=== PATIENT | female | born 1955 | race Caucasian/White ===

== ENCOUNTER → 2017-03-27 | Outpatient (CLI) | payer BC ==
[~2017-03-27] MED LIST: EVISTA60 MG PO; HYDROCHLOROTHIA25 M1 PO; KEFLEX 500MG.500 MG PO; MASON NATURAL2000 IU PO; MELOXICAM7.5 MG PO; MULTIVITAMINS1 EACH PO; POTASSIUM CHLO20 ME2 PO
--- NOTE | 2017-03-31 09:10 | RADIOLOGY REPORT PS360 ---
ULTRASOUND THYROID PROCEDURE: Follow-up thyroid nodules Multiple sagittal & transverse ultrasound images of the thyroid. HISTORY: Follow-up thyroid nodules. Thyromegaly clinically COMPARISON: 05/30/2014 ultrasound thyroid as well as 2012 ----- FINDINGS: RIGHT LOBE: 4.2 cm length, 1.9 cm wide x 1.4 cm AP Nodule A: Solid nodule anterior upper pole right lobe 4.5 mm x 2.6 mm. When measured from the similar points, there is only scant if any progression since 2014. Nodule B: 7.4 mm mixed density nodule. No significant change in size since 2014 Nodule C: LEFT LOBE: 4 cm length X 1.5 cm wide x 1.2 cm AP . No discrete nodule: ISTHMUS: Thin normal appearing isthmus measuring up to 2 mm AP IMPRESSION...... No significant change since previous exams 2 nodules of the right lobe-no significant change. Generous gland bilaterally similar size previous study. Borderline thyromegaly
== END ==
LOC: RAD 14:54
DX: E01.0 Iodine-deficiency related diffuse (endemic) goiter (principal)